=== PATIENT | male | born 2000 | race Two or more races ===

== ENCOUNTER 2025-01-31 15:44 | Emergency (ER) | payer OTHER ==
[~2025-01-31] VITALS: Ht 182.9 cm; Wt 86.0 kg
[2025-01-31 15:50] VITALS: TEMP 36.9; O2SAT 99
[2025-01-31] MEDS ORDERED: ACET-2708 MT (19:39)
[2025-01-31] MEDS: KETOROLAC 30MG/ML VIAL IM ONE (20:10)
[2025-01-31 20:11] VITALS: BP 138/89; PULSE 58; RESP 16; O2SAT 100
== END 2025-01-31 20:12 | disposition home or self-care (01) ==
LOC: ER 16:04
DX: M79.671 Pain in right foot (principal); Z79.899 Other long term (current) drug therapy
CPT/HCPCS: 73630; 96372; 99283; J1885; Z7610